=== PATIENT | female | born 1970 | race Caucasian/White ===

== ENCOUNTER 2020-03-02 05:33 | Observation (INO) ==
[2020-03-02] MEDS ORDERED: 0.9 % Sodium Chloride 1,000 ML IVC ONE (05:47)
[2020-03-02] MEDS ORDERED: Ketorolac 30 MG/ML VIAL IVP ONE (05:47)
[2020-03-02 06:02] LABS: Basophils % 0.4 %; Eosinophils # 0.1 K/mcL (0.0-0.6); Hematocrit 40.8 % (35.3-44.9); Hemoglobin 13.5 g/dL (11.5-15.4); Immature Granulocytes % 0.4 % (0-4); Lymphocytes # 2.1 K/mcL (0.6-4.6); Lymphocytes % 30.2 %; Mean Corpuscular HGB Conc 33.1 g/dL (31.6-35.5); Mean Corpuscular Hemoglobin 32.6 pg (28.0-33.3); Mean Corpuscular Volume 98.6 fL (83.0-100.0); Mean Platelet Volume 9.1 fL (9.4-12.4); Monocytes # 0.6 K/mcL (0.0-1.3); Monocytes % 7.8 %; Neutrophils # 4.2 K/mcL (1.6-8.9); Platelet Count 299 K/mcL (140-400); Red Blood Count 4.14 M/mcL (3.82-4.97); Red Cell Distribution Width 13.3 % (11.5-14.5); Segmented Neutrophils % 60.2 %
[2020-03-02 06:09] LABS: Prothrombin Time 11.4 Seconds (9.4-12.1)
[2020-03-02 06:11] LABS: Activated Partial Thrombo Time 29.2 Seconds (26.0-36.0)
[2020-03-02] MEDS ORDERED: *HR* HYDROmorphone (PF) 1 MG/ML SYRINGE IVP ONE (06:32)
[2020-03-02 06:37] LABS: Alanine Aminotransferase 23 Units/L (7-52); Albumin 4.3 g/dL (3.5-5.7); Albumin/Globulin Ratio 1.7 (1.1-2.2); Alkaline Phosphatase 124 Units/L (34-104); Aspartate Amino Transferase 29 Units/L (13-39); BUN/Creatinine Ratio 21 (6-26); Bilirubin,Direct 0.1 mg/dL (0.0-0.2); Bilirubin,Indirect 0.4 mg/dL (0.0-1.0); Bilirubin,Total 0.5 mg/dL (0.3-1.0); Blood Urea Nitrogen 17 mg/dL (6-20); Calcium 9.6 mg/dL (8.6-10.3); Carbon Dioxide 25 mEq/L (23-29); Chloride 105 mEq/L (98-107); Globulin 2.6 g/dL (2.4-3.5); Glucose 100 mg/dL (70-105); Lipase 87 Units/L (11-82); Osmolality,Calculated 290 (280-300); Potassium 3.9 mEq/L (3.5-5.1); Sodium 139 mEq/L (136-145); Total Protein 6.9 g/dL (6.4-8.9); Troponin I < 0.03 ng/mL (< 0.04); eGFR For African Americans > 60 (> 60); eGFR For Non-African Americans > 60 (> 60)
[2020-03-02] MEDS ORDERED: Pantoprazole 40 MG VIAL IVP ONE (06:59)
[2020-03-02 07:03] LABS: Bilirubin,Urine Negative (Negative); Blood,Urine Negative (Negative); Clarity,Urine Clear (Clear); Color,Urine Light-Yellow (Yellow); Glucose,Urine (UA) Normal (Normal); Ketones,Urine Negative (Negative); Leukocyte Esterase,Urine Negative (Negative); Nitrite,Urine Negative (Negative); Protein,Urine Negative (Neg-Trace); Urobilinogen,Urine Normal (Normal)
[2020-03-02] MEDS ORDERED: Ondansetron 4 MG/2 ML VIAL IVP PRN (07:54)
[2020-03-02] MEDS ORDERED: Naloxone 0.4 MG/ML INJ IVP PRN (07:54)
[2020-03-02] MEDS: *HR* HYDROmorphone (PF) 1 MG/ML SYRINGE IVP PRN ×3 (11:30→20:06)
[2020-03-02] MEDS: Ringers Solution, Lactated 1,000 ML IVC SCH (18:58)
[2020-03-02] MEDS ORDERED: traZODone 50 MG TABLET PO STA (23:16)
[2020-03-02] MEDS ORDERED: cloNIDine HCL 0.1 MG TABLET PO ONE (23:22)
[2020-03-02] MEDS: Acetaminophen 325 MG TABLET PO PRN (23:28)
[2020-03-02] MEDS: *HR* Heparin 5,000 UNIT/ML VIAL SQ SCH (23:29)
[2020-03-03] MEDS: *HR* HYDROmorphone (PF) 1 MG/ML SYRINGE IVP PRN ×5 (00:07→19:20)
[2020-03-03] MEDS: Ringers Solution, Lactated 1,000 ML IVC SCH ×2 (05:58→13:16)
[2020-03-03] MEDS: *HR* Heparin 5,000 UNIT/ML VIAL SQ SCH ×3 (05:59→20:48)
[2020-03-03] MEDS: Acetaminophen 325 MG TABLET PO PRN (05:59)
[2020-03-03 06:44] LABS: Basophils % 0.6 %; Eosinophils # 0.1 K/mcL (0.0-0.6); Eosinophils % 1.3 %; Hematocrit 37.7 % (35.3-44.9); Hemoglobin 12.2 g/dL (11.5-15.4); Immature Granulocytes % 0.2 % (0-4); Lymphocytes # 1.5 K/mcL (0.6-4.6); Lymphocytes % 31.5 %; Mean Corpuscular HGB Conc 32.4 g/dL (31.6-35.5); Mean Corpuscular Hemoglobin 32.3 pg (28.0-33.3); Mean Corpuscular Volume 99.7 fL (83.0-100.0); Mean Platelet Volume 9.3 fL (9.4-12.4); Monocytes # 0.4 K/mcL (0.0-1.3); Monocytes % 7.4 %; Neutrophils # 2.8 K/mcL (1.6-8.9); Platelet Count 218 K/mcL (140-400); Red Blood Count 3.78 M/mcL (3.82-4.97); Red Cell Distribution Width 13.1 % (11.5-14.5); White Blood Count 4.8 K/mcL (4.3-11.1)
[2020-03-03 07:04] LABS: Albumin 3.9 g/dL (3.5-5.7); Albumin/Globulin Ratio 1.6 (1.1-2.2); Bilirubin,Direct 0.1 mg/dL (0.0-0.2); Bilirubin,Indirect 0.6 mg/dL (0.0-1.0); Bilirubin,Total 0.7 mg/dL (0.3-1.0); Globulin 2.4 g/dL (2.4-3.5); Total Protein 6.3 g/dL (6.4-8.9)
[2020-03-03 07:09] LABS: BUN/Creatinine Ratio 16 (6-26); Blood Urea Nitrogen 11 mg/dL (6-20); Calcium 9.1 mg/dL (8.6-10.3); Carbon Dioxide 24 mEq/L (23-29); Chloride 105 mEq/L (98-107); Glucose 78 mg/dL (70-105); Magnesium 1.8 mg/dL (1.6-2.6); Osmolality,Calculated 284 (280-300); Potassium 4.4 mEq/L (3.5-5.1); Sodium 138 mEq/L (136-145); eGFR For African Americans > 60 (> 60); eGFR For Non-African Americans > 60 (> 60)
[2020-03-03] MEDS: (Dextroamphetamine/Amphetamine [Adderall 10 Mg Tablet PO SCH ×2 (09:10→20:46)
[2020-03-03] MEDS: Ascorbic Acid 500 MG TABLET PO SCH (09:11)
[2020-03-03] MEDS: amLODIPine 5 MG TABLET PO SCH (09:12)
[2020-03-03] MEDS: Loratadine 10 MG TABLET PO SCH (09:12)
[2020-03-03] MEDS: Fluticasone Propionate Nasal 50 MCG/SPRAY BOTTLE NS SCH (09:13)
[2020-03-03 10:33] LABS: Chol/HDL Ratio 2.8 (0-4.9)
[2020-03-03] MEDS ORDERED: Pantoprazole 40 MG VIAL IVP ONE (13:04)
[2020-03-03] MEDS ORDERED: *HR* FentaNYL (PF) 100 MCG/2 ML VIAL ONE (13:56)
[2020-03-03] MEDS ORDERED: *HR* Midazolam HCl 5 MG/5 ML VIAL IVP ONE ×2 (13:56→14:17)
[2020-03-03] MEDS ORDERED: *HR* FentaNYL (PF) 100 MCG/2 ML VIAL IVP ONE (14:17)
[2020-03-03] MEDS: traZODone 50 MG TABLET PO SCH (20:46)
[2020-03-03] MEDS: cloNIDine HCL 0.1 MG TABLET PO SCH (20:46)
[2020-03-04] MEDS: *HR* HYDROmorphone (PF) 1 MG/ML SYRINGE IVP PRN ×3 (02:06→11:15)
[2020-03-04 02:24] LABS: Basophils % 0.7 %; Eosinophils # 0.1 K/mcL (0.0-0.6); Eosinophils % 1.1 %; Hematocrit 34.7 % (35.3-44.9); Hemoglobin 11.3 g/dL (11.5-15.4); Immature Granulocytes % 0.2 % (0-4); Lymphocytes # 1.5 K/mcL (0.6-4.6); Lymphocytes % 32.2 %; Mean Corpuscular HGB Conc 32.6 g/dL (31.6-35.5); Mean Corpuscular Hemoglobin 32.6 pg (28.0-33.3); Mean Platelet Volume 9.1 fL (9.4-12.4); Monocytes # 0.4 K/mcL (0.0-1.3); Monocytes % 8.3 %; Neutrophils # 2.6 K/mcL (1.6-8.9); Platelet Count 223 K/mcL (140-400); Red Blood Count 3.47 M/mcL (3.82-4.97); Segmented Neutrophils % 57.5 %; White Blood Count 4.6 K/mcL (4.3-11.1)
[2020-03-04 02:42] LABS: Alanine Aminotransferase 99 Units/L (7-52); Albumin 3.4 g/dL (3.5-5.7); Albumin/Globulin Ratio 1.5 (1.1-2.2); Alkaline Phosphatase 216 Units/L (34-104); Aspartate Amino Transferase 192 Units/L (13-39); BUN/Creatinine Ratio 14 (6-26); Bilirubin,Total 0.4 mg/dL (0.3-1.0); Blood Urea Nitrogen 10 mg/dL (6-20); Calcium 8.2 mg/dL (8.6-10.3); Carbon Dioxide 28 mEq/L (23-29); Chloride 107 mEq/L (98-107); Globulin 2.3 g/dL (2.4-3.5); Glucose 115 mg/dL (70-105); Osmolality,Calculated 290 (280-300); Potassium 3.9 mEq/L (3.5-5.1); Sodium 140 mEq/L (136-145); Total Protein 5.7 g/dL (6.4-8.9); eGFR For African Americans > 60 (> 60); eGFR For Non-African Americans > 60 (> 60)
[2020-03-04] MEDS ORDERED: Ibuprofen 600 MG TABLET PO ONE (06:01)
[2020-03-04] MEDS: *HR* Heparin 5,000 UNIT/ML VIAL SQ SCH (06:09)
[2020-03-04] MEDS: Ascorbic Acid 500 MG TABLET PO SCH (09:08)
[2020-03-04] MEDS: amLODIPine 5 MG TABLET PO SCH (09:09)
[2020-03-04] MEDS: Fluticasone Propionate Nasal 50 MCG/SPRAY BOTTLE NS SCH (09:11)
[2020-03-04] MEDS: Loratadine 10 MG TABLET PO SCH (09:12)
[2020-03-04] MEDS: (Dextroamphetamine/Amphetamine [Adderall 10 Mg Tablet PO SCH ×2 (09:12→21:31)
[2020-03-04 09:30] LABS: Bilirubin,Urine Negative (Negative); Blood,Urine Negative (Negative); Clarity,Urine Clear (Clear); Color,Urine Light-Yellow (Yellow); Glucose,Urine (UA) Normal (Normal); Ketones,Urine Negative (Negative); Leukocyte Esterase,Urine Negative (Negative); Nitrite,Urine Negative (Negative); Protein,Urine Negative (Neg-Trace); Urobilinogen,Urine Normal (Normal)
[2020-03-04] MEDS: *HR* OxyCODONE Immed Rel 5 MG TABLET PO PRN ×2 (15:26→21:28)
[2020-03-04] MEDS: Methyl Salicylate/Menthol 57 APPL/57 GM TUBE TP PRN (17:08)
[2020-03-04] MEDS: cloNIDine HCL 0.1 MG TABLET PO SCH (21:29)
[2020-03-04] MEDS: traZODone 50 MG TABLET PO SCH (21:29)
[2020-03-05] MEDS: *HR* OxyCODONE Immed Rel 5 MG TABLET PO PRN ×2 (03:30→09:04)
[2020-03-05 05:07] LABS: Basophils % 0.5 %; Eosinophils # 0.1 K/mcL (0.0-0.6); Eosinophils % 1.2 %; Hematocrit 33.5 % (35.3-44.9); Immature Granulocytes % 0.2 % (0-4); Lymphocytes # 1.5 K/mcL (0.6-4.6); Lymphocytes % 26.6 %; Mean Corpuscular HGB Conc 32.8 g/dL (31.6-35.5); Mean Corpuscular Hemoglobin 33.1 pg (28.0-33.3); Mean Corpuscular Volume 100.9 fL (83.0-100.0); Mean Platelet Volume 9.7 fL (9.4-12.4); Monocytes # 0.5 K/mcL (0.0-1.3); Neutrophils # 3.7 K/mcL (1.6-8.9); Platelet Count 212 K/mcL (140-400); Red Blood Count 3.32 M/mcL (3.82-4.97); Red Cell Distribution Width 13.2 % (11.5-14.5); Segmented Neutrophils % 63.5 %; White Blood Count 5.8 K/mcL (4.3-11.1)
[2020-03-05 05:20] LABS: Alanine Aminotransferase 79 Units/L (7-52); Albumin 3.7 g/dL (3.5-5.7); Albumin/Globulin Ratio 1.7 (1.1-2.2); Alkaline Phosphatase 193 Units/L (34-104); Aspartate Amino Transferase 85 Units/L (13-39); BUN/Creatinine Ratio 10 (6-26); Bilirubin,Total 0.3 mg/dL (0.3-1.0); Blood Urea Nitrogen 9 mg/dL (6-20); Calcium 9.1 mg/dL (8.6-10.3); Carbon Dioxide 30 mEq/L (23-29); Chloride 104 mEq/L (98-107); Globulin 2.2 g/dL (2.4-3.5); Glucose 104 mg/dL (70-105); Osmolality,Calculated 285 (280-300); Sodium 138 mEq/L (136-145); Total Protein 5.9 g/dL (6.4-8.9); eGFR For African Americans > 60 (> 60); eGFR For Non-African Americans > 60 (> 60)
[2020-03-05 07:43] LABS: Acetaminophen < 10 mcg/mL (10-20)
[2020-03-05] MEDS: Ascorbic Acid 500 MG TABLET PO SCH (09:03)
[2020-03-05] MEDS: Fluticasone Propionate Nasal 50 MCG/SPRAY BOTTLE NS SCH (09:04)
[2020-03-05] MEDS: amLODIPine 5 MG TABLET PO SCH (09:04)
[2020-03-05] MEDS: Loratadine 10 MG TABLET PO SCH (09:04)
[2020-03-05] MEDS: (Dextroamphetamine/Amphetamine [Adderall 10 Mg Tablet PO SCH (09:04)
[2020-03-05] MEDS: Methyl Salicylate/Menthol 57 APPL/57 GM TUBE TP PRN (09:06)
[2020-03-05 10:03] LABS: Hepatitis B Surface Antigen Nonreactive (Nonreactive)
[2020-03-05] MEDS ORDERED: GI Cocktail 40 ML EACH PO ONE (10:30)
[2020-03-05 10:32] LABS: Hepatitis B Core IgM Nonreactive (Nonreactive); Hepatitis C Virus Antibody Nonreactive (Nonreactive)
[2020-03-05 10:33] LABS: Hepatitis A Antibody IgM Nonreactive (Nonreactive)
[2020-03-05 11:26] VITALS: BP 119/82
[2020-03-05] MEDS ORDERED: Sucralfate 1 GM TABLET PO SCH (12:15)
[2020-03-07 11:17] LABS: ANA IgG by ELISA NONE DETECTED (None Detected)
== END 2020-03-05 14:43 | disposition home or self-care (01) ==
LOC: SUATTDRO → EMEROOARM 05:33 → 3BNU 05:33 → SUATTDRO 07:54 → 3BNU 08:49
PROVIDERS: ADMIT Pharmacist; ATTEND Internal Medicine
PROC: ENDOEBX (2020-03-03 14:00)

== ENCOUNTER 2020-08-13 09:44 | Inpatient (IN) ==
[2020-08-13] MEDS ORDERED: 0.9 % Sodium Chloride 1,000 ML IVC ONE (10:04)
[2020-08-13 10:25] LABS: Basophils % 0.2 %; Eosinophils % 0.2 %; Hematocrit 37.8 % (35.3-44.9); Hemoglobin 12.9 g/dL (11.5-15.4); Immature Granulocytes % 0.4 % (0-4); Lymphocytes % 12.3 %; Mean Corpuscular HGB Conc 34.1 g/dL (31.6-35.5); Mean Corpuscular Hemoglobin 32.3 pg (28.0-33.3); Mean Corpuscular Volume 94.7 fL (83.0-100.0); Mean Platelet Volume 9.4 fL (9.4-12.4); Monocytes # 1.4 K/mcL (0.0-1.3); Monocytes % 8.2 %; Neutrophils # 12.9 K/mcL (1.6-8.9); Platelet Count 348 K/mcL (140-400); Red Blood Count 3.99 M/mcL (3.82-4.97); Red Cell Distribution Width 13.3 % (11.5-14.5); Segmented Neutrophils % 78.7 %; White Blood Count 16.4 K/mcL (4.3-11.1)
[2020-08-13] MEDS ORDERED: Ondansetron 4 MG/2 ML VIAL IVP PRN (10:29)
[2020-08-13] MEDS ORDERED: *HR* HYDROmorphone (PF) 1 MG/ML SYRINGE IVP ONE ×2 (10:30→11:34)
[2020-08-13 10:32] LABS: Bacteria,Urine Few per hpf (None-Few); Bilirubin,Urine Negative (Negative); Blood,Urine Negative (Negative); Clarity,Urine Turbid (Clear); Color,Urine Yellow (Yellow); Glucose,Urine (UA) Normal (Normal); Ketones,Urine Negative (Negative); Leukocyte Esterase,Urine Large (Negative); Mucus,Urine Few per lpf (None-Few); Nitrite,Urine Negative (Negative); PH,Urine 6.5 pH Units (5.0-8.0); Protein,Urine 50 mg/dL (Neg-Trace); Specific Gravity,Urine 1.014 (1.010-1.025); Squamous Epithelial Cell,Urine Few per hpf (None-Few); Urobilinogen,Urine Normal (Normal); WBC,Urine TNTC per hpf (0-3)
[2020-08-13 10:49] LABS: Alanine Aminotransferase 189 Units/L (7-52); Albumin 4.3 g/dL (3.5-5.7); Albumin/Globulin Ratio 1.2 (1.1-2.2); Alkaline Phosphatase 309 Units/L (34-104); Aspartate Amino Transferase 114 Units/L (13-39); BUN/Creatinine Ratio 9 (6-26); Bilirubin,Total 1.2 mg/dL (0.3-1.0); Blood Urea Nitrogen 9 mg/dL (6-20); Calcium 10.5 mg/dL (8.6-10.3); Carbon Dioxide 37 mEq/L (23-29); Chloride 90 mEq/L (98-107); Globulin 3.7 g/dL (2.4-3.5); Glucose 109 mg/dL (70-105); Lipase 14 Units/L (11-82); Osmolality,Calculated 283 (280-300); Potassium 2.5 mEq/L (3.5-5.1); Sodium 137 mEq/L (136-145); eGFR For African Americans > 60 (> 60); eGFR For Non-African Americans 60 (> 60)
[2020-08-13] MEDS ORDERED: cefTRIAXone 1,000 MG in 0.9 % Sodium Chloride Mini Bag 100 ML IVPB ONE (11:51)
[2020-08-13] MEDS ORDERED: Naloxone 0.4 MG/ML INJ IVP PRN (14:50)
[2020-08-13] MEDS ORDERED: *HR* OxyCODONE Immed Rel 5 MG TABLET PO PRN (14:53)
[2020-08-13] MEDS ORDERED: *HR* HYDROcodone/Acet 5/325 mg TABLET PO PRN (14:53)
[2020-08-13] MEDS ORDERED: Ketorolac 30 MG/ML VIAL IVP ONE (15:26)
[2020-08-13] MEDS: *HR* Heparin 5,000 UNIT/ML VIAL SQ SCH (17:15)
[2020-08-13] MEDS: Pantoprazole 40 MG VIAL IVP SCH (17:15)
[2020-08-13] MEDS: Sucralfate 1 GM TABLET PO SCH ×2 (17:15→21:30)
[2020-08-13] MEDS ORDERED: Fluticasone Propionate Nasal 50 MCG/SPRAY BOTTLE NS PRN (18:39)
[2020-08-13] MEDS: tiZANidine 4 MG TABLET PO SCH (21:30)
[2020-08-13] MEDS: traZODone 50 MG TABLET PO SCH (21:30)
[2020-08-13] MEDS: cloNIDine HCL 0.1 MG TABLET PO SCH (21:33)
[2020-08-14] MEDS: Acetaminophen 325 MG TABLET PO PRN ×2 (04:16→10:30)
[2020-08-14] MEDS: Pantoprazole 40 MG VIAL IVP SCH ×2 (05:31→17:11)
[2020-08-14] MEDS: *HR* Heparin 5,000 UNIT/ML VIAL SQ SCH ×2 (05:32→17:12)
[2020-08-14 07:06] LABS: Basophils % 0.2 %; Eosinophils # 0.1 K/mcL (0.0-0.6); Eosinophils % 0.6 %; Immature Granulocytes % 0.6 % (0-4); Lymphocytes # 1.6 K/mcL (0.6-4.6); Lymphocytes % 11.1 %; Mean Corpuscular Hemoglobin 31.3 pg (28.0-33.3); Mean Corpuscular Volume 94.9 fL (83.0-100.0); Monocytes # 1.8 K/mcL (0.0-1.3); Monocytes % 13.2 %; Neutrophils # 10.3 K/mcL (1.6-8.9); Platelet Count 285 K/mcL (140-400); Red Blood Count 3.16 M/mcL (3.82-4.97); Red Cell Distribution Width 13.6 % (11.5-14.5); Segmented Neutrophils % 74.3 %; White Blood Count 13.9 K/mcL (4.3-11.1)
[2020-08-14 07:23] LABS: BUN/Creatinine Ratio 11 (6-26); Blood Urea Nitrogen 10 mg/dL (6-20); Calcium 9.1 mg/dL (8.6-10.3); Carbon Dioxide 32 mEq/L (23-29); Chloride 95 mEq/L (98-107); Glucose 104 mg/dL (70-105); Osmolality,Calculated 283 (280-300); Potassium 2.8 mEq/L (3.5-5.1); Sodium 137 mEq/L (136-145); eGFR For African Americans > 60 (> 60); eGFR For Non-African Americans > 60 (> 60)
[2020-08-14] MEDS: amLODIPine 5 MG TABLET PO SCH (08:08)
[2020-08-14] MEDS: Sucralfate 1 GM TABLET PO SCH ×4 (08:08→22:13)
[2020-08-14] MEDS: Psyllium 1 PACKET POWD.PACK PO SCH (08:11)
[2020-08-14] MEDS: cefTRIAXone 1,000 MG in Water for inj. (sterile) 10 ML IVP SCH (08:11)
[2020-08-14] MEDS: Loratadine 10 MG TABLET PO SCH (08:11)
[2020-08-14] MEDS: AMPHETAMINE PO SCH (08:20)
[2020-08-14] MEDS: DEXTROAMPHETAMINE PO SCH (08:20)
[2020-08-14 08:28] LABS: Hemoglobin 9.9 g/dL (11.5-15.4)
[2020-08-14] MEDS ORDERED: Ketorolac 30 MG/ML VIAL IVP ONE (10:55)
[2020-08-14] MEDS ORDERED: SUMAtriptan 6 MG/0.5 ML SQ ONE (12:14)
[2020-08-14 13:30] LABS: Alanine Aminotransferase 129 Units/L (7-52); Albumin 3.4 g/dL (3.5-5.7); Albumin/Globulin Ratio 1.3 (1.1-2.2); Alkaline Phosphatase 265 Units/L (34-104); Aspartate Amino Transferase 82 Units/L (13-39); Bilirubin,Direct 0.8 mg/dL (0.0-0.2); Bilirubin,Indirect 0.6 mg/dL (0.0-1.0); Bilirubin,Total 1.4 mg/dL (0.3-1.0); Globulin 2.7 g/dL (2.4-3.5); Total Protein 6.1 g/dL (6.4-8.9)
[2020-08-14] MEDS: Acetaminophen IV 1,000 MG/100 ML BAG IVPB SCH (19:19)
[2020-08-14] MEDS: tiZANidine 4 MG TABLET PO SCH (20:27)
[2020-08-14] MEDS: traZODone 50 MG TABLET PO SCH (20:27)
[2020-08-14] MEDS: cloNIDine HCL 0.1 MG TABLET PO SCH (20:28)
[2020-08-15] MEDS: Acetaminophen IV 1,000 MG/100 ML BAG IVPB SCH ×4 (00:37→17:54)
[2020-08-15 04:57] LABS: Basophils % 0.3 %; Eosinophils # 0.1 K/mcL (0.0-0.6); Eosinophils % 1.3 %; Hemoglobin 11.3 g/dL (11.5-15.4); Immature Granulocytes % 0.7 % (0-4); Lymphocytes # 1.9 K/mcL (0.6-4.6); Lymphocytes % 22.1 %; Mean Corpuscular HGB Conc 32.3 g/dL (31.6-35.5); Mean Corpuscular Hemoglobin 31.4 pg (28.0-33.3); Mean Corpuscular Volume 97.2 fL (83.0-100.0); Mean Platelet Volume 9.2 fL (9.4-12.4); Monocytes % 11.9 %; Neutrophils # 5.6 K/mcL (1.6-8.9); Platelet Count 328 K/mcL (140-400); Red Cell Distribution Width 13.7 % (11.5-14.5); Segmented Neutrophils % 63.7 %; White Blood Count 8.8 K/mcL (4.3-11.1)
[2020-08-15 05:21] LABS: BUN/Creatinine Ratio 13 (6-26); Blood Urea Nitrogen 11 mg/dL (6-20); Calcium 9.8 mg/dL (8.6-10.3); Carbon Dioxide 32 mEq/L (23-29); Chloride 96 mEq/L (98-107); Glucose 100 mg/dL (70-105); Osmolality,Calculated 285 (280-300); Sodium 138 mEq/L (136-145); eGFR For African Americans > 60 (> 60); eGFR For Non-African Americans > 60 (> 60)
[2020-08-15] MEDS: Pantoprazole 40 MG VIAL IVP SCH (05:39)
[2020-08-15] MEDS: *HR* Heparin 5,000 UNIT/ML VIAL SQ SCH ×2 (05:40→17:55)
[2020-08-15] MEDS: AMPHETAMINE PO SCH (07:58)
[2020-08-15] MEDS: DEXTROAMPHETAMINE PO SCH (07:58)
[2020-08-15] MEDS: amLODIPine 5 MG TABLET PO SCH (08:03)
[2020-08-15] MEDS: tiZANidine 4 MG TABLET PO PRN (08:03)
[2020-08-15] MEDS: Loratadine 10 MG TABLET PO SCH (08:03)
[2020-08-15] MEDS: Psyllium 1 PACKET POWD.PACK PO SCH (08:03)
[2020-08-15] MEDS: cefTRIAXone 1,000 MG in Water for inj. (sterile) 10 ML IVP SCH (08:04)
[2020-08-15] MEDS: Sucralfate 1 GM TABLET PO SCH ×4 (08:04→21:17)
[2020-08-15] MEDS ORDERED: Fluconazole 150 MG TABLET PO ONE (17:02)
[2020-08-15] MEDS ORDERED: Valproic Acid INJ 500 MG in 0.9 % Sodium Chloride 100 ML IVPB ONE (17:02)
[2020-08-15] MEDS ORDERED: Prochlorperazine 10 MG/2 ML VIAL IVP ONE (17:04)
[2020-08-15] MEDS: cloNIDine HCL 0.1 MG TABLET PO SCH (21:16)
[2020-08-15] MEDS: traZODone 50 MG TABLET PO SCH (21:17)
[2020-08-15] MEDS: tiZANidine 4 MG TABLET PO SCH (21:17)
[2020-08-16] MEDS: Acetaminophen IV 1,000 MG/100 ML BAG IVPB SCH ×4 (00:15→17:54)
[2020-08-16 05:02] LABS: Basophils % 0.7 %; Eosinophils # 0.1 K/mcL (0.0-0.6); Eosinophils % 1.6 %; Hematocrit 31.7 % (35.3-44.9); Hemoglobin 10.2 g/dL (11.5-15.4); Immature Granulocytes % 1.4 % (0-4); Lymphocytes # 1.5 K/mcL (0.6-4.6); Lymphocytes % 25.6 %; Mean Corpuscular HGB Conc 32.2 g/dL (31.6-35.5); Mean Corpuscular Hemoglobin 31.5 pg (28.0-33.3); Mean Corpuscular Volume 97.8 fL (83.0-100.0); Mean Platelet Volume 9.7 fL (9.4-12.4); Monocytes # 0.7 K/mcL (0.0-1.3); Monocytes % 12.1 %; Neutrophils # 3.4 K/mcL (1.6-8.9); Platelet Count 356 K/mcL (140-400); Red Blood Count 3.24 M/mcL (3.82-4.97); Red Cell Distribution Width 13.6 % (11.5-14.5); Segmented Neutrophils % 58.6 %; White Blood Count 5.8 K/mcL (4.3-11.1)
[2020-08-16 05:06] LABS: Alanine Aminotransferase 166 Units/L (7-52); Albumin 3.4 g/dL (3.5-5.7); Albumin/Globulin Ratio 1.1 (1.1-2.2); Alkaline Phosphatase 293 Units/L (34-104); Aspartate Amino Transferase 118 Units/L (13-39); BUN/Creatinine Ratio 19 (6-26); Bilirubin,Total 0.6 mg/dL (0.3-1.0); Blood Urea Nitrogen 15 mg/dL (6-20); Calcium 9.9 mg/dL (8.6-10.3); Carbon Dioxide 33 mEq/L (23-29); Chloride 100 mEq/L (98-107); Chloride 99 mEq/L (98-107); Globulin 3.2 g/dL (2.4-3.5); Glucose 95 mg/dL (70-105); Magnesium 1.8 mg/dL (1.6-2.6); Osmolality,Calculated 287 (280-300); Osmolality,Calculated 289 (280-300); Potassium 4.2 mEq/L (3.5-5.1); Sodium 138 mEq/L (136-145); Sodium 139 mEq/L (136-145); Total Protein 6.6 g/dL (6.4-8.9); eGFR For African Americans > 60 (> 60); eGFR For Non-African Americans > 60 (> 60)
[2020-08-16] MEDS: *HR* Heparin 5,000 UNIT/ML VIAL SQ SCH ×2 (06:29→17:52)
[2020-08-16] MEDS: Loratadine 10 MG TABLET PO SCH (08:06)
[2020-08-16] MEDS: Sucralfate 1 GM TABLET PO SCH ×4 (08:07→20:28)
[2020-08-16] MEDS: amLODIPine 5 MG TABLET PO SCH (08:07)
[2020-08-16] MEDS: cefTRIAXone 1,000 MG in Water for inj. (sterile) 10 ML IVP SCH (08:07)
[2020-08-16] MEDS: Psyllium 1 PACKET POWD.PACK PO SCH (08:08)
[2020-08-16] MEDS: DEXTROAMPHETAMINE PO SCH (08:09)
[2020-08-16] MEDS: AMPHETAMINE PO SCH (08:09)
[2020-08-16] MEDS ORDERED: Fluconazole 150 MG TABLET PO ONE (08:46)
[2020-08-16] MEDS: polyethylene glycoL 3350 17 GM POWD.PACK PO SCH (09:17)
[2020-08-16] MEDS ORDERED: Isovue-370 500 ML BOTTLE IVP ONE (12:36)
[2020-08-16] MEDS: tiZANidine 4 MG TABLET PO SCH (20:28)
[2020-08-16] MEDS: traZODone 50 MG TABLET PO SCH (20:28)
[2020-08-16] MEDS: cloNIDine HCL 0.1 MG TABLET PO SCH (20:28)
[2020-08-17] MEDS: Acetaminophen IV 1,000 MG/100 ML BAG IVPB SCH ×2 (00:07→06:09)
[2020-08-17] MEDS: Sucralfate 1 GM TABLET PO SCH ×4 (06:09→21:10)
[2020-08-17] MEDS: *HR* Heparin 5,000 UNIT/ML VIAL SQ SCH ×2 (06:09→17:25)
[2020-08-17 07:13] LABS: Basophils % 0.4 %; Eosinophils # 0.1 K/mcL (0.0-0.6); Hematocrit 36.5 % (35.3-44.9); Hemoglobin 11.7 g/dL (11.5-15.4); Immature Granulocytes % 1.6 % (0-4); Lymphocytes # 1.3 K/mcL (0.6-4.6); Mean Corpuscular HGB Conc 32.1 g/dL (31.6-35.5); Mean Corpuscular Volume 96.8 fL (83.0-100.0); Mean Platelet Volume 9.5 fL (9.4-12.4); Monocytes # 0.9 K/mcL (0.0-1.3); Monocytes % 9.9 %; Neutrophils # 6.9 K/mcL (1.6-8.9); Platelet Count 441 K/mcL (140-400); Red Blood Count 3.77 M/mcL (3.82-4.97); Red Cell Distribution Width 14.2 % (11.5-14.5); Segmented Neutrophils % 73.1 %
[2020-08-17 07:24] LABS: White Blood Count 9.4 K/mcL (4.3-11.1)
[2020-08-17 07:28] LABS: BUN/Creatinine Ratio 16 (6-26); Blood Urea Nitrogen 15 mg/dL (6-20); Calcium 10.2 mg/dL (8.6-10.3); Carbon Dioxide 34 mEq/L (23-29); Chloride 94 mEq/L (98-107); Glucose 90 mg/dL (70-105); Osmolality,Calculated 282 (280-300); Potassium 4.3 mEq/L (3.5-5.1); Sodium 136 mEq/L (136-145); eGFR For African Americans > 60 (> 60); eGFR For Non-African Americans > 60 (> 60)
[2020-08-17] MEDS ORDERED: methylPREDNISolone 125 MG/2 ML VIAL IVP ONE (09:09)
[2020-08-17] MEDS: DEXTROAMPHETAMINE PO SCH (09:27)
[2020-08-17] MEDS: AMPHETAMINE PO SCH (09:27)
[2020-08-17] MEDS: Loratadine 10 MG TABLET PO SCH (09:33)
[2020-08-17] MEDS: cefTRIAXone 1,000 MG in Water for inj. (sterile) 10 ML IVP SCH (09:33)
[2020-08-17] MEDS: amLODIPine 5 MG TABLET PO SCH (09:33)
[2020-08-17] MEDS: polyethylene glycoL 3350 17 GM POWD.PACK PO SCH (09:34)
[2020-08-17] MEDS: *HR* OxyCODONE Immed Rel 5 MG TABLET PO SCH ×2 (15:03→21:10)
[2020-08-17] MEDS: MethylPREDNISolone 40 MG/ML VIAL IVP SCH ×2 (15:03→21:10)
[2020-08-17] MEDS: tiZANidine 4 MG TABLET PO SCH (21:10)
[2020-08-17] MEDS: traZODone 50 MG TABLET PO SCH (21:10)
[2020-08-17] MEDS: cloNIDine HCL 0.1 MG TABLET PO SCH (21:11)
[2020-08-18] MEDS: MethylPREDNISolone 40 MG/ML VIAL IVP SCH ×4 (03:28→18:47)
[2020-08-18] MEDS: *HR* OxyCODONE Immed Rel 5 MG TABLET PO SCH ×3 (03:29→15:05)
[2020-08-18 04:08] LABS: Alanine Aminotransferase 172 Units/L (7-52); Albumin 3.8 g/dL (3.5-5.7); Alkaline Phosphatase 391 Units/L (34-104); Aspartate Amino Transferase 109 Units/L (13-39); BUN/Creatinine Ratio 21 (6-26); Bilirubin,Total 0.7 mg/dL (0.3-1.0); Blood Urea Nitrogen 18 mg/dL (6-20); C-Reactive Protein 102 mg/L (Less than 10); Calcium 10.3 mg/dL (8.6-10.3); Carbon Dioxide 29 mEq/L (23-29); Chloride 94 mEq/L (98-107); Globulin 3.7 g/dL (2.4-3.5); Glucose 133 mg/dL (70-105); Hematocrit 33.4 % (35.3-44.9); Hemoglobin 10.9 g/dL (11.5-15.4); Mean Corpuscular HGB Conc 32.6 g/dL (31.6-35.5); Mean Corpuscular Hemoglobin 31.5 pg (28.0-33.3); Mean Corpuscular Volume 96.5 fL (83.0-100.0); Mean Platelet Volume 9.5 fL (9.4-12.4); Osmolality,Calculated 284 (280-300); Platelet Count 469 K/mcL (140-400); Potassium 4.4 mEq/L (3.5-5.1); Red Blood Count 3.46 M/mcL (3.82-4.97); Red Cell Distribution Width 14.3 % (11.5-14.5); Sodium 135 mEq/L (136-145); Total Protein 7.5 g/dL (6.4-8.9); eGFR For African Americans > 60 (> 60); eGFR For Non-African Americans > 60 (> 60)
[2020-08-18 04:12] LABS: White Blood Count 17.8 K/mcL (4.3-11.1)
[2020-08-18] MEDS: Sucralfate 1 GM TABLET PO SCH ×5 (06:13→21:27)
[2020-08-18] MEDS: *HR* Heparin 5,000 UNIT/ML VIAL SQ SCH ×2 (06:13→17:45)
[2020-08-18] MEDS: Loratadine 10 MG TABLET PO SCH (10:09)
[2020-08-18] MEDS: amLODIPine 5 MG TABLET PO SCH (10:10)
[2020-08-18] MEDS: cefTRIAXone 1,000 MG in Water for inj. (sterile) 10 ML IVP SCH (10:10)
[2020-08-18] MEDS: DEXTROAMPHETAMINE PO SCH (10:27)
[2020-08-18] MEDS: AMPHETAMINE PO SCH (10:27)
[2020-08-18] MEDS: polyethylene glycoL 3350 17 GM POWD.PACK PO SCH (10:35)
[2020-08-18] MEDS ORDERED: *HR* HYDROmorphone (PF) 1 MG/ML SYRINGE IVP ONE (17:39)
[2020-08-18] MEDS: tiZANidine 4 MG TABLET PO SCH (21:28)
[2020-08-18] MEDS: traZODone 50 MG TABLET PO SCH (21:28)
[2020-08-18] MEDS: cloNIDine HCL 0.1 MG TABLET PO SCH (21:28)
[2020-08-18] MEDS: tiZANidine 4 MG TABLET PO PRN (21:41)
[2020-08-19] MEDS ORDERED: Piperacillin/Tazobactam 3.375 GM VIAL ONE (01:17)
[2020-08-19] MEDS: MethylPREDNISolone 40 MG/ML VIAL IVP SCH ×3 (01:25→16:08)
[2020-08-19] MEDS: Piperacillin/Tazobactam 3.375 GM in 0.9 % Sodium Chloride Mini Bag 100 ML IVPB SCH ×3 (01:30→16:09)
[2020-08-19 05:31] LABS: Hematocrit 32.7 % (35.3-44.9); Hemoglobin 10.3 g/dL (11.5-15.4); Mean Corpuscular HGB Conc 31.5 g/dL (31.6-35.5); Mean Corpuscular Volume 98.5 fL (83.0-100.0); Mean Platelet Volume 9.5 fL (9.4-12.4); Platelet Count 536 K/mcL (140-400); Red Blood Count 3.32 M/mcL (3.82-4.97); Red Cell Distribution Width 14.6 % (11.5-14.5); White Blood Count 23.3 K/mcL (4.3-11.1)
[2020-08-19 05:43] LABS: Alanine Aminotransferase 158 Units/L (7-52); Albumin/Globulin Ratio 1.1 (1.1-2.2); Alkaline Phosphatase 373 Units/L (34-104); Aspartate Amino Transferase 72 Units/L (13-39); BUN/Creatinine Ratio 26 (6-26); Bilirubin,Direct 0.2 mg/dL (0.0-0.2); Bilirubin,Indirect 0.3 mg/dL (0.0-1.0); Bilirubin,Total 0.5 mg/dL (0.3-1.0); Blood Urea Nitrogen 25 mg/dL (6-20); Calcium 10.2 mg/dL (8.6-10.3); Carbon Dioxide 30 mEq/L (23-29); Chloride 97 mEq/L (98-107); Globulin 3.5 g/dL (2.4-3.5); Glucose 142 mg/dL (70-105); Osmolality,Calculated 289 (280-300); Sodium 136 mEq/L (136-145); Total Protein 7.5 g/dL (6.4-8.9); eGFR For African Americans > 60 (> 60); eGFR For Non-African Americans > 60 (> 60)
[2020-08-19] MEDS: Sucralfate 1 GM TABLET PO SCH ×4 (07:16→21:56)
[2020-08-19] MEDS: *HR* Heparin 5,000 UNIT/ML VIAL SQ SCH ×2 (07:17→18:38)
[2020-08-19] MEDS: amLODIPine 5 MG TABLET PO SCH (08:44)
[2020-08-19] MEDS: Loratadine 10 MG TABLET PO SCH (08:44)
[2020-08-19] MEDS: polyethylene glycoL 3350 17 GM POWD.PACK PO SCH (08:45)
[2020-08-19] MEDS ORDERED: Methylnaltrexone 12 MG/0.6 ML SYRINGE SQ ONE (11:14)
[2020-08-19] MEDS ORDERED: *HR* HYDROmorphone (PF) 1 MG/ML SYRINGE IVP ONE ×2 (12:00→18:34)
[2020-08-19] MEDS: traZODone 50 MG TABLET PO SCH (21:56)
[2020-08-19] MEDS: cloNIDine HCL 0.1 MG TABLET PO SCH (21:56)
[2020-08-19] MEDS: tiZANidine 4 MG TABLET PO SCH (21:56)
[2020-08-19] MEDS: tiZANidine 4 MG TABLET PO PRN (21:56)
[2020-08-20 00:07] LABS: Hematocrit 34.8 % (35.3-44.9); Hemoglobin 11.3 g/dL (11.5-15.4)
[2020-08-20] MEDS: Piperacillin/Tazobactam 3.375 GM in 0.9 % Sodium Chloride Mini Bag 100 ML IVPB SCH ×3 (01:11→16:25)
[2020-08-20] MEDS: MethylPREDNISolone 40 MG/ML VIAL IVP SCH ×3 (01:11→16:24)
[2020-08-20] MEDS: *HR* Heparin 5,000 UNIT/ML VIAL SQ SCH ×2 (04:53→17:01)
[2020-08-20 06:31] LABS: Hematocrit 32.9 % (35.3-44.9); Hemoglobin 10.3 g/dL (11.5-15.4); Mean Corpuscular HGB Conc 31.3 g/dL (31.6-35.5); Mean Corpuscular Hemoglobin 30.8 pg (28.0-33.3); Mean Corpuscular Volume 98.5 fL (83.0-100.0); Mean Platelet Volume 9.4 fL (9.4-12.4); Platelet Count 533 K/mcL (140-400); Red Blood Count 3.34 M/mcL (3.82-4.97); Red Cell Distribution Width 14.2 % (11.5-14.5); White Blood Count 16.8 K/mcL (4.3-11.1)
[2020-08-20 06:48] LABS: Alanine Aminotransferase 110 Units/L (7-52); Albumin 3.8 g/dL (3.5-5.7); Albumin/Globulin Ratio 1.2 (1.1-2.2); Alkaline Phosphatase 307 Units/L (34-104); Aspartate Amino Transferase 35 Units/L (13-39); BUN/Creatinine Ratio 26 (6-26); Bilirubin,Direct 0.2 mg/dL (0.0-0.2); Bilirubin,Indirect 0.2 mg/dL (0.0-1.0); Bilirubin,Total 0.4 mg/dL (0.3-1.0); Blood Urea Nitrogen 24 mg/dL (6-20); Calcium 10.1 mg/dL (8.6-10.3); Carbon Dioxide 34 mEq/L (23-29); Chloride 97 mEq/L (98-107); Globulin 3.1 g/dL (2.4-3.5); Glucose 133 mg/dL (70-105); Osmolality,Calculated 292 (280-300); Potassium 4.2 mEq/L (3.5-5.1); Sodium 138 mEq/L (136-145); Total Protein 6.9 g/dL (6.4-8.9); eGFR For African Americans > 60 (> 60); eGFR For Non-African Americans > 60 (> 60)
[2020-08-20] MEDS: Sucralfate 1 GM TABLET PO SCH ×4 (06:58→22:05)
[2020-08-20] MEDS: Loratadine 10 MG TABLET PO SCH (09:27)
[2020-08-20] MEDS: amLODIPine 5 MG TABLET PO SCH (09:27)
[2020-08-20] MEDS: polyethylene glycoL 3350 17 GM POWD.PACK PO SCH ×4 (09:28→22:06)
[2020-08-20] MEDS ORDERED: Hydrocortisone Rectal 2.5% CRM 28 GM TUBE RC PRN (14:11)
[2020-08-20] MEDS ORDERED: Milk and Molasses Enema 200 ML RC ONE (14:25)
[2020-08-20] MEDS: traZODone 50 MG TABLET PO SCH (22:05)
[2020-08-20] MEDS: tiZANidine 4 MG TABLET PO PRN (22:06)
[2020-08-20] MEDS: cloNIDine HCL 0.1 MG TABLET PO SCH (22:06)
[2020-08-20] MEDS: tiZANidine 4 MG TABLET PO SCH (22:06)
[2020-08-21] MEDS: MethylPREDNISolone 40 MG/ML VIAL IVP SCH ×3 (01:47→18:35)
[2020-08-21] MEDS: Piperacillin/Tazobactam 3.375 GM in 0.9 % Sodium Chloride Mini Bag 100 ML IVPB SCH ×3 (01:47→17:08)
[2020-08-21] MEDS: *HR* Heparin 5,000 UNIT/ML VIAL SQ SCH ×2 (06:47→17:09)
[2020-08-21] MEDS: Sucralfate 1 GM TABLET PO SCH ×4 (06:48→22:16)
[2020-08-21] MEDS: polyethylene glycoL 3350 17 GM POWD.PACK PO SCH ×2 (08:29→22:18)
[2020-08-21] MEDS: amLODIPine 5 MG TABLET PO SCH (08:31)
[2020-08-21] MEDS: Loratadine 10 MG TABLET PO SCH (08:31)
[2020-08-21 09:29] LABS: Hematocrit 36.2 % (35.3-44.9); Mean Corpuscular HGB Conc 32.9 g/dL (31.6-35.5); Mean Corpuscular Hemoglobin 31.9 pg (28.0-33.3); Mean Corpuscular Volume 97.1 fL (83.0-100.0); Mean Platelet Volume 9.3 fL (9.4-12.4); Platelet Count 590 K/mcL (140-400); Red Blood Count 3.73 M/mcL (3.82-4.97); Red Cell Distribution Width 14.1 % (11.5-14.5); White Blood Count 13.4 K/mcL (4.3-11.1)
[2020-08-21 09:32] LABS: Hemoglobin 11.9 g/dL (11.5-15.4)
[2020-08-21 09:45] LABS: Alanine Aminotransferase 107 Units/L (7-52); Albumin/Globulin Ratio 1.1 (1.1-2.2); Alkaline Phosphatase 320 Units/L (34-104); Aspartate Amino Transferase 37 Units/L (13-39); BUN/Creatinine Ratio 20 (6-26); Bilirubin,Direct 0.1 mg/dL (0.0-0.2); Bilirubin,Indirect 0.4 mg/dL (0.0-1.0); Bilirubin,Total 0.5 mg/dL (0.3-1.0); Blood Urea Nitrogen 19 mg/dL (6-20); Carbon Dioxide 29 mEq/L (23-29); Chloride 97 mEq/L (98-107); Globulin 3.6 g/dL (2.4-3.5); Glucose 116 mg/dL (70-105); Osmolality,Calculated 287 (280-300); Potassium 4.1 mEq/L (3.5-5.1); Sodium 137 mEq/L (136-145); Total Protein 7.6 g/dL (6.4-8.9); eGFR For African Americans > 60 (> 60); eGFR For Non-African Americans > 60 (> 60)
[2020-08-21 10:18] LABS: Immunoglobulin A 185 mg/dL (68-408); Immunoglobulin G 845 mg/dL (768-1632); Immunoglobulin M 134 mg/dL (35-263)
[2020-08-21] MEDS ORDERED: *HR* Propofol 200 MG/20 ML VIAL IVP ONE (10:37)
[2020-08-21] MEDS: cloNIDine HCL 0.1 MG TABLET PO SCH (22:16)
[2020-08-21] MEDS: tiZANidine 4 MG TABLET PO SCH (22:17)
[2020-08-21] MEDS: tiZANidine 4 MG TABLET PO PRN (22:17)
[2020-08-21] MEDS: traZODone 50 MG TABLET PO SCH (22:17)
[2020-08-22] MEDS: Piperacillin/Tazobactam 3.375 GM in 0.9 % Sodium Chloride Mini Bag 100 ML IVPB SCH ×3 (01:03→16:25)
[2020-08-22] MEDS: MethylPREDNISolone 40 MG/ML VIAL IVP SCH ×2 (04:20→16:26)
[2020-08-22] MEDS: *HR* Heparin 5,000 UNIT/ML VIAL SQ SCH ×2 (05:28→18:56)
[2020-08-22 06:22] LABS: Hematocrit 33.9 % (35.3-44.9); Mean Corpuscular HGB Conc 32.4 g/dL (31.6-35.5); Mean Corpuscular Hemoglobin 31.5 pg (28.0-33.3); Mean Corpuscular Volume 97.1 fL (83.0-100.0); Mean Platelet Volume 9.2 fL (9.4-12.4); Platelet Count 553 K/mcL (140-400); Red Blood Count 3.49 M/mcL (3.82-4.97); Red Cell Distribution Width 14.1 % (11.5-14.5)
[2020-08-22 06:36] LABS: Alanine Aminotransferase 70 Units/L (7-52); Albumin 3.6 g/dL (3.5-5.7); Albumin/Globulin Ratio 1.2 (1.1-2.2); Alkaline Phosphatase 239 Units/L (34-104); Aspartate Amino Transferase 18 Units/L (13-39); BUN/Creatinine Ratio 26 (6-26); Bilirubin,Direct 0.1 mg/dL (0.0-0.2); Bilirubin,Indirect 0.2 mg/dL (0.0-1.0); Bilirubin,Total 0.3 mg/dL (0.3-1.0); Blood Urea Nitrogen 22 mg/dL (6-20); Calcium 9.9 mg/dL (8.6-10.3); Carbon Dioxide 31 mEq/L (23-29); Chloride 99 mEq/L (98-107); Globulin 2.9 g/dL (2.4-3.5); Glucose 131 mg/dL (70-105); Osmolality,Calculated 289 (280-300); Potassium 4.3 mEq/L (3.5-5.1); Sodium 137 mEq/L (136-145); Total Protein 6.5 g/dL (6.4-8.9); eGFR For African Americans > 60 (> 60); eGFR For Non-African Americans > 60 (> 60)
[2020-08-22] MEDS: amLODIPine 5 MG TABLET PO SCH (08:29)
[2020-08-22] MEDS: Sucralfate 1 GM TABLET PO SCH ×4 (08:30→21:35)
[2020-08-22] MEDS: polyethylene glycoL 3350 17 GM POWD.PACK PO SCH ×3 (08:30→21:46)
[2020-08-22] MEDS: Loratadine 10 MG TABLET PO SCH (08:30)
[2020-08-22 09:34] LABS: Liver-Kidney Microsome-1 IgG 1.4 U (0.0-24.9)
[2020-08-22 09:45] LABS: Smooth Muscle Ab Titer IgG 1:40 (<1:20)
[2020-08-22] MEDS ORDERED: *HR* FentaNYL (PF) 100 MCG/2 ML VIAL IVP ONE (13:40)
[2020-08-22] MEDS ORDERED: *HR* Midazolam HCl 2 MG/2 ML VIAL IVP ONE (13:40)
[2020-08-22] MEDS ORDERED: *HR* FentaNYL (PF) 100 MCG/2 ML VIAL ONE (13:53)
[2020-08-22] MEDS ORDERED: *HR* Midazolam HCl 2 MG/2 ML VIAL ONE (13:54)
[2020-08-22] MEDS: cloNIDine HCL 0.1 MG TABLET PO SCH (21:34)
[2020-08-22] MEDS: tiZANidine 4 MG TABLET PO SCH (21:35)
[2020-08-22] MEDS: traZODone 50 MG TABLET PO SCH (21:35)
[2020-08-23 01:06] LABS: Basophils # 0.1 K/mcL (0.0-0.2); Basophils % 0.3 %; Hematocrit 33.3 % (35.3-44.9); Hemoglobin 11.1 g/dL (11.5-15.4); Immature Granulocytes % 2.3 % (0-4); Lymphocytes % 9.6 %; Mean Corpuscular HGB Conc 33.3 g/dL (31.6-35.5); Mean Corpuscular Hemoglobin 32.2 pg (28.0-33.3); Mean Corpuscular Volume 96.5 fL (83.0-100.0); Monocytes # 0.8 K/mcL (0.0-1.3); Monocytes % 3.9 %; Neutrophils # 17.2 K/mcL (1.6-8.9); Nucleated Red Blood Cells 0.1 /100 WBC (0); Platelet Count 557 K/mcL (140-400); Red Blood Count 3.45 M/mcL (3.82-4.97); Segmented Neutrophils % 83.9 %; White Blood Count 20.5 K/mcL (4.3-11.1)
[2020-08-23] MEDS: Piperacillin/Tazobactam 3.375 GM in 0.9 % Sodium Chloride Mini Bag 100 ML IVPB SCH ×2 (01:06→08:05)
[2020-08-23 01:21] LABS: Alanine Aminotransferase 64 Units/L (7-52); Albumin 3.6 g/dL (3.5-5.7); Albumin/Globulin Ratio 1.3 (1.1-2.2); Alkaline Phosphatase 227 Units/L (34-104); Aspartate Amino Transferase 20 Units/L (13-39); BUN/Creatinine Ratio 22 (6-26); Bilirubin,Total 0.3 mg/dL (0.3-1.0); Blood Urea Nitrogen 21 mg/dL (6-20); Calcium 9.3 mg/dL (8.6-10.3); Carbon Dioxide 30 mEq/L (23-29); Chloride 97 mEq/L (98-107); Globulin 2.8 g/dL (2.4-3.5); Glucose 195 mg/dL (70-105); Magnesium 1.9 mg/dL (1.6-2.6); Osmolality,Calculated 286 (280-300); Phosphorous 4.4 mg/dL (2.7-4.5); Potassium 3.5 mEq/L (3.5-5.1); Sodium 134 mEq/L (136-145); Total Protein 6.4 g/dL (6.4-8.9); eGFR For African Americans > 60 (> 60); eGFR For Non-African Americans > 60 (> 60)
[2020-08-23] MEDS: MethylPREDNISolone 40 MG/ML VIAL IVP SCH (05:23)
[2020-08-23] MEDS: *HR* Heparin 5,000 UNIT/ML VIAL SQ SCH (05:23)
[2020-08-23] MEDS: polyethylene glycoL 3350 17 GM POWD.PACK PO SCH (08:06)
[2020-08-23] MEDS: amLODIPine 5 MG TABLET PO SCH (08:06)
[2020-08-23] MEDS: Sucralfate 1 GM TABLET PO SCH ×2 (08:07→12:13)
[2020-08-23] MEDS: Loratadine 10 MG TABLET PO SCH (08:07)
[2020-08-23 10:52] VITALS: BP 144/92
[2020-08-23] MEDS ORDERED: Fluconazole 150 MG TABLET PO ONE (13:18)
== END 2020-08-23 15:50 | disposition home or self-care (01) | DRG 872 ==
LOC: EMEROOARM 09:44 → 3ANU 09:44 → SUATTDRO 13:40 → 3ANU 14:23 → SUATTDRO 08-16 15:30
PROVIDERS: ADMIT Internal Medicine; ATTEND Internal Medicine
PROC: ENDOEBX (2020-08-21 13:55)
PROC: IRLIVER (2020-08-22 12:00)

== ENCOUNTER 2021-11-13 05:18 | Inpatient (IN) ==
[2021-11-13] MEDS ORDERED: 0.9 % Sodium Chloride 1,000 ML IVC SCH ×2 (05:30→10:00)
[2021-11-13] MEDS ORDERED: Piperacillin/Tazobactam 3.375 GM in 0.9 % Sodium Chloride Mini Bag 100 ML IVPB ONE (05:30)
[2021-11-13] MEDS ORDERED: Morphine Sulfate 2 MG/ML SYRINGE IVP ONE ×2 (05:49→09:01)
[2021-11-13] MEDS ORDERED: Ondansetron 4 MG/2 ML VIAL IVP PRN ×3 (05:49→16:24)
[2021-11-13 06:08] LABS: Basophils % 0.1 %; Eosinophils # 0.1 K/mcL (0.0-0.6); Eosinophils % 0.3 %; Hematocrit 28.3 % (35.3-44.9); Hemoglobin 9.2 g/dL (11.5-15.4); Immature Granulocytes % 0.8 % (0-4); Lymphocytes # 1.4 K/mcL (0.6-4.6); Lymphocytes % 9.2 %; Mean Corpuscular HGB Conc 32.5 g/dL (31.6-35.5); Mean Corpuscular Hemoglobin 29.8 pg (28.0-33.3); Mean Corpuscular Volume 91.6 fL (83.0-100.0); Mean Platelet Volume 9.6 fL (9.4-12.4); Monocytes % 13.4 %; Neutrophils # 11.3 K/mcL (1.6-8.9); Platelet Count 257 K/mcL (140-400); Red Blood Count 3.09 M/mcL (3.82-4.97); Segmented Neutrophils % 76.2 %; White Blood Count 14.8 K/mcL (4.3-11.1)
[2021-11-13 06:09] LABS: VBG HCO3 25 mEq/L (21-27); VBG PCO2 37 mmHg (41-51); VBG PH 7.44 pH Units (7.32-7.42); VBG PO2 56 mmHg (25-50)
[2021-11-13 06:15] LABS: INR 1.5; Prothrombin Time 17.1 Seconds (9.4-12.1)
[2021-11-13 06:18] LABS: Activated Partial Thrombo Time 32.4 Seconds (26.0-36.0)
[2021-11-13] MEDS ORDERED: Isovue-370 500 ML BOTTLE IVP ONE (06:32)
[2021-11-13 06:44] LABS: Alanine Aminotransferase 82 Units/L (7-52); Albumin 3.4 g/dL (3.5-5.7); Albumin/Globulin Ratio 1.2 (1.1-2.2); Alkaline Phosphatase 213 Units/L (34-104); Aspartate Amino Transferase 47 Units/L (13-39); BUN/Creatinine Ratio 13 (6-26); Bilirubin,Direct 0.7 mg/dL (0.0-0.2); Bilirubin,Indirect 0.7 mg/dL (0.0-1.0); Bilirubin,Total 1.4 mg/dL (0.3-1.0); Blood Urea Nitrogen 16 mg/dL (6-20); Carbon Dioxide 26 mEq/L (23-29); Chloride 96 mEq/L (98-107); Ethanol < 10 mg/dL (Less than 10); Globulin 2.8 g/dL (2.4-3.5); Glucose 114 mg/dL (70-105); Osmolality,Calculated 274 (280-300); Phosphorous 2.2 mg/dL (2.7-4.5); Potassium 3.7 mEq/L (3.5-5.1); Sodium 131 mEq/L (136-145); Total Protein 6.2 g/dL (6.4-8.9); Troponin I < 0.03 ng/mL (< 0.04); eGFR For African Americans 57 (> 60); eGFR For Non-African Americans 47 (> 60)
[2021-11-13] MEDS ORDERED: 0.9 % Sodium Chloride 1,000 ML IV ONE (06:53)
[2021-11-13 06:59] LABS: Influenza A PCR Negative (Negative); Influenza B PCR Negative (Negative); Resp. Syncytial Virus PCR Negative (Negative)
[2021-11-13 07:01] LABS: SARS-CoV-2 by PCR (In House) Negative (Negative)
[2021-11-13 07:17] LABS: Magnesium 1.5 mg/dL (1.6-2.6)
[2021-11-13 07:54] LABS: Bacteria,Urine Few per hpf (None-Few); Bilirubin,Urine Negative (Negative); Blood,Urine Trace (Negative); Budding Yeast,Urine Few per hpf (None Seen); Clarity,Urine Turbid (Clear); Color,Urine Light-Yellow (Yellow); Glucose,Urine (UA) Normal (Normal); Ketones,Urine Negative (Negative); Leukocyte Esterase,Urine Large (Negative); Nitrite,Urine Negative (Negative); PH,Urine 6.5 pH Units (5.0-8.0); Protein,Urine Trace mg/dL (Neg-Trace); Squamous Epithelial Cell,Urine Moderate per hpf (None-Few); Urobilinogen,Urine Normal (Normal); WBC,Urine TNTC per hpf (0-3)
[2021-11-13] MEDS ORDERED: cefTRIAXone 2,000 MG in 0.9 % Sodium Chloride 20 ML IVPB ONE (09:38)
[2021-11-13] MEDS ORDERED: Melatonin 3 MG TABLET PO PRN (09:53)
[2021-11-13] MEDS ORDERED: Naloxone 0.4 MG/ML INJ IVP PRN ×3 (09:53→16:24)
[2021-11-13] MEDS ORDERED: *HR* HYDROmorphone (PF) 1 MG/ML SYRINGE IVP PRN (10:25)
[2021-11-13 11:52] LABS: Hepatitis B Surface Antigen Nonreactive (Nonreactive)
[2021-11-13] MEDS ORDERED: Acetaminophen 325 MG TABLET PO PRN (12:13)
[2021-11-13 12:21] LABS: Hepatitis C Virus Antibody Nonreactive (Nonreactive)
[2021-11-13 12:22] LABS: Hepatitis A Antibody IgM Nonreactive (Nonreactive)
[2021-11-13 12:32] LABS: Amphetamine Screen,Urine Negative ng/mL (Cutoff=1000); Barbiturate Screen,Urine Negative ng/mL (Cutoff=200); Benzodiazepines Screen,Urine Negative ng/mL (Cutoff=200); Cannabinoid Screen,Urine Negative ng/mL (Cutoff = 50); Cocaine Screen,Urine Negative ng/mL (Cutoff= 300); Opiate Screen,Urine Positive ng/mL (Cutoff=300); Phencyclidine Screen,Urine Negative ng/mL (Cutoff=25)
[2021-11-13] MEDS ORDERED: *HR* Propofol 200 MG/20 ML VIAL IVP ONE (13:31)
[2021-11-13] MEDS ORDERED: Lidocaine -MPF 2% 5 ML VIAL ONE (13:31)
[2021-11-13] MEDS ORDERED: Albuterol 2.5 MG/3 ML NEBULIZER IH PRN (13:33)
[2021-11-13] MEDS ORDERED: *HR* FentaNYL (PF) 100 MCG/2 ML VIAL IVP PRN (13:33)
[2021-11-13] MEDS ORDERED: Nitroglycerin 0.4 MG TAB.SUBL SL PRN (13:33)
[2021-11-13] MEDS ORDERED: Isovue-300 50ML VIAL ONE (13:38)
[2021-11-13] MEDS ORDERED: *HR* FentaNYL (PF) 100 MCG/2 ML VIAL ONE (13:57)
[2021-11-13] MEDS ORDERED: *HR* Midazolam HCl 2 MG/2 ML VIAL ONE (14:03)
[2021-11-13] MEDS ORDERED: Ondansetron 4 MG/2 ML VIAL ONE (14:18)
[2021-11-13] MEDS ORDERED: Ringers Solution, Lactated 1,000 ML ONE (14:34)
[2021-11-13] MEDS ORDERED: Piperacillin/Tazobactam 3.375 GM in 0.9 % Sodium Chloride Mini Bag 100 ML IVPB SCH (16:00)
[2021-11-13] MEDS: 0.9 % Sodium Chloride 1,000 ML IVC SCH ×2 (16:35→23:52)
[2021-11-13] MEDS ORDERED: ELETRIPTAN HBR 40 MG PO PRN (16:38)
[2021-11-13] MEDS: Piperacillin/Tazobactam 3.375 GM in 0.9 % Sodium Chloride Mini Bag 100 ML IVPB SCH ×2 (16:45→23:52)
[2021-11-13] MEDS: BuPROPion XL (24 HR) 150 MG TABLET PO SCH (17:08)
[2021-11-13] MEDS: Gabapentin 300 MG CAPSULE PO SCH (20:19)
[2021-11-13] MEDS: traZODone 50 MG TABLET PO SCH (20:19)
[2021-11-13] MEDS: Melatonin 3 MG TABLET PO PRN (20:19)
[2021-11-13] MEDS: cloNIDine HCL 0.1 MG TABLET PO SCH (20:19)
[2021-11-13] MEDS: AMPHETAMINE PO SCH (20:40)
[2021-11-13] MEDS: DEXTROAMPHETAMINE PO SCH (20:40)
[2021-11-13] MEDS: *HR* HYDROmorphone (PF) 1 MG/ML SYRINGE IVP PRN (20:46)
[2021-11-14 01:35] LABS: CTX-M ESBL Gene Not Detected (Not Detect); IMP Carbapenem-Resist Gene Not Detected (Not Detect); NDM Carbapenem-Resist Gene Not Detected (Not Detect); OXA-48-like Carbap-Resist Gene Not Detected (Not Detect); VIM Carbapenem-Resist Gene Not Detected (Not Detect); blaKPC Carbapenem-Resist Gene Not Detected (Not Detect)
[2021-11-14 01:36] LABS: A.calcoaceticus-baumannii cplx Not Detected (Not Detect); Bacteroides fragilis by PCR Not Detected (Not Detect); Candida albicans by PCR Not Detected (Not Detect); Candida auris by PCR Not Detected (Not Detect); Candida glabrata by PCR Not Detected (Not Detect); Candida krusei by PCR Not Detected (Not Detect); Candida parapsilosis by PCR Not Detected (Not Detect); Candida tropicalis by PCR Not Detected (Not Detect); Crypto. neoformans/gattii PCR Not Detected (Not Detect); Enterobacter cloacae Cmplx PCR Not Detected (Not Detect); Enterobacterales by PCR Not Detected (Not Detect); Enterococcus faecalis by PCR Not Detected (Not Detect); Enterococcus faecium by PCR Not Detected (Not Detect); Escherichia coli by PCR DETECTED (Not Detect); Klebs. pneumoniae group by PCR Not Detected (Not Detect); Klebsiella aerogenes by PCR Not Detected (Not Detect); Klebsiella oxytoca by PCR Not Detected (Not Detect); Proteus by PCR Not Detected (Not Detect); Pseudomonas aeruginosa by PCR Not Detected (Not Detect); Salmonella species by PCR Not Detected (Not Detect); Serratia marcescens by PCR Not Detected (Not Detect); Staph epidermidis by PCR Not Detected (Not Detect); Staph lugdunensis by PCR Not Detected (Not Detect); Staphylococcus aureus by PCR Not Detected (Not Detect); Staphylococcus by PCR Not Detected (Not Detect); Stenotrophomonas maltophilia Not Detected (Not Detect); Streptococcus agalactiae(B)PCR Not Detected (Not Detect); Streptococcus by PCR Not Detected (Not Detect); Streptococcus pneumoniae PCR Not Detected (Not Detect); Streptococcus pyogenes (A) PCR Not Detected (Not Detect); mcr-1 Colistin-Resist Gene Not Detected (Not Detect)
[2021-11-14 05:45] LABS: Basophils % 0.1 %; Hematocrit 26.7 % (35.3-44.9); Hemoglobin 8.4 g/dL (11.5-15.4); Immature Granulocytes % 1.6 % (0-4); Lymphocytes # 0.7 K/mcL (0.6-4.6); Lymphocytes % 7.7 %; Mean Corpuscular HGB Conc 31.5 g/dL (31.6-35.5); Mean Corpuscular Hemoglobin 29.8 pg (28.0-33.3); Mean Corpuscular Volume 94.7 fL (83.0-100.0); Mean Platelet Volume 9.6 fL (9.4-12.4); Monocytes # 0.4 K/mcL (0.0-1.3); Monocytes % 4.6 %; Neutrophils # 8.3 K/mcL (1.6-8.9); Platelet Count 218 K/mcL (140-400); Red Blood Count 2.82 M/mcL (3.82-4.97); Red Cell Distribution Width 14.4 % (11.5-14.5); White Blood Count 9.6 K/mcL (4.3-11.1)
[2021-11-14 06:28] LABS: % Iron Saturation 7 % (15-50); Alanine Aminotransferase 64 Units/L (7-52); Albumin 2.9 g/dL (3.5-5.7); Alkaline Phosphatase 196 Units/L (34-104); Aspartate Amino Transferase 37 Units/L (13-39); BUN/Creatinine Ratio 16 (6-26); Bilirubin,Total 0.5 mg/dL (0.3-1.0); Blood Urea Nitrogen 14 mg/dL (6-20); Calcium 8.6 mg/dL (8.6-10.3); Carbon Dioxide 20 mEq/L (23-29); Chloride 109 mEq/L (98-107); Chol/HDL Ratio 4.1 (0-4.9); Cholesterol 126 mg/dL (< 200); Globulin 2.8 g/dL (2.4-3.5); Glucose 173 mg/dL (70-105); HDL Cholesterol 31 mg/dL (40-59); Iron 20 mcg/dL (50-170); LDL Cholesterol,Calculated 71 mg/dL (< 100); Magnesium 1.7 mg/dL (1.6-2.6); Osmolality,Calculated 297 (280-300); Potassium 3.7 mEq/L (3.5-5.1); Sodium 141 mEq/L (136-145); Total Protein 5.7 g/dL (6.4-8.9); Transferrin 191 mg/dL (203-362); Triglycerides 120 mg/dL (< 150); eGFR For African Americans > 60 (> 60); eGFR For Non-African Americans > 60 (> 60)
[2021-11-14] MEDS: amLODIPine 5 MG TABLET PO SCH (08:03)
[2021-11-14] MEDS: DEXTROAMPHETAMINE PO SCH ×2 (08:03→20:18)
[2021-11-14] MEDS: BuPROPion XL (24 HR) 150 MG TABLET PO SCH (08:03)
[2021-11-14] MEDS: AMPHETAMINE PO SCH ×2 (08:03→20:18)
[2021-11-14] MEDS: Piperacillin/Tazobactam 3.375 GM in 0.9 % Sodium Chloride Mini Bag 100 ML IVPB SCH ×2 (08:04→20:17)
[2021-11-14] MEDS: 0.9 % Sodium Chloride 1,000 ML IVC SCH (08:09)
[2021-11-14] MEDS: Acetaminophen 325 MG TABLET PO PRN (08:22)
[2021-11-14 09:34] LABS: Ferritin 161 ng/mL (10-120)
[2021-11-14] MEDS: *HR* HYDROmorphone (PF) 1 MG/ML SYRINGE IVP PRN (12:09)
[2021-11-14] MEDS ORDERED: *HR* HYDROcodone/Acet 5/325 mg TABLET PO PRN (12:23)
[2021-11-14] MEDS ORDERED: Psyllium 1 PACKET POWD.PACK PO PRN (12:24)
[2021-11-14] MEDS ORDERED: *HR* OxyCODONE Immed Rel 5 MG TABLET PO PRN (12:47)
[2021-11-14] MEDS: traZODone 50 MG TABLET PO SCH (20:17)
[2021-11-14] MEDS: Gabapentin 300 MG CAPSULE PO SCH (20:18)
[2021-11-14] MEDS: cloNIDine HCL 0.1 MG TABLET PO SCH (20:18)
[2021-11-14] MEDS: polyethylene glycoL 3350 17 GM POWD.PACK PO SCH (20:18)
[2021-11-14] MEDS: Melatonin 3 MG TABLET PO PRN (20:18)
[2021-11-14] MEDS: tiZANidine 4 MG TABLET PO SCH (20:18)
[2021-11-15] MEDS: Piperacillin/Tazobactam 3.375 GM in 0.9 % Sodium Chloride Mini Bag 100 ML IVPB SCH (03:14)
[2021-11-15 05:11] LABS: Basophils % 0.1 %; Eosinophils % 0.1 %; Hematocrit 23.3 % (35.3-44.9); Hemoglobin 7.6 g/dL (11.5-15.4); Immature Granulocytes % 1.8 % (0-4); Lymphocytes # 1.5 K/mcL (0.6-4.6); Lymphocytes % 15.6 %; Mean Corpuscular HGB Conc 32.6 g/dL (31.6-35.5); Mean Corpuscular Hemoglobin 30.6 pg (28.0-33.3); Mean Platelet Volume 9.6 fL (9.4-12.4); Monocytes # 0.6 K/mcL (0.0-1.3); Monocytes % 6.1 %; Neutrophils # 7.4 K/mcL (1.6-8.9); Platelet Count 215 K/mcL (140-400); Red Blood Count 2.48 M/mcL (3.82-4.97); Red Cell Distribution Width 14.5 % (11.5-14.5); Segmented Neutrophils % 76.3 %; White Blood Count 9.7 K/mcL (4.3-11.1)
[2021-11-15 05:30] LABS: Alanine Aminotransferase 65 Units/L (7-52); Albumin 2.9 g/dL (3.5-5.7); Albumin/Globulin Ratio 1.1 (1.1-2.2); Alkaline Phosphatase 174 Units/L (34-104); Aspartate Amino Transferase 48 Units/L (13-39); BUN/Creatinine Ratio 22 (6-26); Bilirubin,Total 0.4 mg/dL (0.3-1.0); Blood Urea Nitrogen 19 mg/dL (6-20); Calcium 8.6 mg/dL (8.6-10.3); Carbon Dioxide 22 mEq/L (23-29); Chloride 110 mEq/L (98-107); Globulin 2.6 g/dL (2.4-3.5); Glucose 116 mg/dL (70-105); Osmolality,Calculated 295 (280-300); Potassium 3.7 mEq/L (3.5-5.1); Sodium 141 mEq/L (136-145); Total Protein 5.5 g/dL (6.4-8.9); eGFR For African Americans > 60 (> 60); eGFR For Non-African Americans > 60 (> 60)
[2021-11-15] MEDS ORDERED: *HR* HYDROmorphone (PF) 1 MG/ML SYRINGE IVP ONE (08:47)
[2021-11-15 09:16] LABS: Lipase 21 Units/L (11-82)
[2021-11-15] MEDS: amLODIPine 5 MG TABLET PO SCH (09:23)
[2021-11-15] MEDS: BuPROPion XL (24 HR) 150 MG TABLET PO SCH (09:23)
[2021-11-15] MEDS: AMPHETAMINE PO SCH ×2 (09:24→20:57)
[2021-11-15] MEDS: DEXTROAMPHETAMINE PO SCH ×2 (09:24→20:57)
[2021-11-15] MEDS ORDERED: Isovue-370 500 ML BOTTLE IVP ONE (11:07)
[2021-11-15] MEDS: polyethylene glycoL 3350 17 GM POWD.PACK PO SCH ×2 (11:55→20:58)
[2021-11-15] MEDS: tiZANidine 4 MG TABLET PO SCH ×2 (11:55→20:57)
[2021-11-15] MEDS ORDERED: cefTRIAXone 1,000 MG in 0.9 % Sodium Chloride 10 ML IVP SCH (14:00)
[2021-11-15] MEDS ORDERED: levoFLOXacin 750 MG TABLET PO SCH (14:45)
[2021-11-15 19:16] VITALS: TEMP 98
[2021-11-15] MEDS: traZODone 50 MG TABLET PO SCH (20:57)
[2021-11-15] MEDS: Melatonin 3 MG TABLET PO PRN (20:57)
[2021-11-15] MEDS: Gabapentin 300 MG CAPSULE PO SCH (20:57)
[2021-11-15] MEDS: cloNIDine HCL 0.1 MG TABLET PO SCH (20:57)
[2021-11-16 02:40] LABS: Hematocrit 24.4 % (35.3-44.9); Hemoglobin 8.2 g/dL (11.5-15.4); Mean Corpuscular HGB Conc 33.6 g/dL (31.6-35.5); Mean Corpuscular Volume 89.4 fL (83.0-100.0); Mean Platelet Volume 9.1 fL (9.4-12.4); Platelet Count 314 K/mcL (140-400); Red Blood Count 2.73 M/mcL (3.82-4.97); Red Cell Distribution Width 14.4 % (11.5-14.5)
[2021-11-16 03:00] LABS: Alanine Aminotransferase 65 Units/L (7-52); Albumin 2.8 g/dL (3.5-5.7); Albumin/Globulin Ratio 1.1 (1.1-2.2); Alkaline Phosphatase 181 Units/L (34-104); Aspartate Amino Transferase 43 Units/L (13-39); BUN/Creatinine Ratio 14 (6-26); Bilirubin,Direct 0.1 mg/dL (0.0-0.2); Bilirubin,Indirect 0.3 mg/dL (0.0-1.0); Bilirubin,Total 0.4 mg/dL (0.3-1.0); Blood Urea Nitrogen 13 mg/dL (6-20); Calcium 8.4 mg/dL (8.6-10.3); Carbon Dioxide 27 mEq/L (23-29); Chloride 105 mEq/L (98-107); Globulin 2.6 g/dL (2.4-3.5); Glucose 95 mg/dL (70-105); Osmolality,Calculated 292 (280-300); Potassium 3.8 mEq/L (3.5-5.1); Sodium 141 mEq/L (136-145); Total Protein 5.4 g/dL (6.4-8.9); eGFR For African Americans > 60 (> 60); eGFR For Non-African Americans > 60 (> 60)
[2021-11-16] MEDS: Acetaminophen 325 MG TABLET PO PRN (06:06)
[2021-11-16] MEDS ORDERED: levoFLOXacin 750 MG TABLET PO SCH (09:00)
[2021-11-16] MEDS ORDERED: cefTRIAXone 1,000 MG in 0.9 % Sodium Chloride 10 ML IVP SCH (09:00)
[2021-11-16 09:55] VITALS: BP 129/77; PULSE 94; O2SAT 95
[2021-11-16] MEDS: amLODIPine 5 MG TABLET PO SCH (09:55)
[2021-11-16] MEDS: BuPROPion XL (24 HR) 150 MG TABLET PO SCH (09:55)
[2021-11-16] MEDS: tiZANidine 4 MG TABLET PO SCH (09:56)
[2021-11-16] MEDS: polyethylene glycoL 3350 17 GM POWD.PACK PO SCH (09:56)
== END 2021-11-16 12:00 | disposition home or self-care (01) | DRG 854 ==
LOC: 2NENU 05:18 → EMEROOARM 05:18 → 2NENU 11:28
PROVIDERS: ADMIT Hospitalist; ATTEND Hospitalist